=== PATIENT | female | born 1990 | race African-American/Black ===

== ENCOUNTER 2017-07-29 20:29 | Emergency (ER) | payer SELFPAY ==
[~2017-07-29] VITALS: Ht 162.6 cm; Wt 132.2 kg
[~2017-07-29 20:29] MED LIST: IBUP-232 PO; PENI500T PO; Z.0.NO CURRENT MEDS; ZINCLOZ2 PO; ZOFR4TAB3 SL
[2017-07-29 20:36] VITALS: BP 146/95; PULSE 105; RESP 22; TEMP 98.4; O2SAT 96
[2017-07-29] MEDS ORDERED: methylPREDNISolone SOD SUCC 125 MG/2 ML VIAL IM ONE (21:00)
--- NOTE | 2017-07-29 21:15 | PD ---
HPI Chief Complaint: Respiratory Symptoms Time Seen by Provider: 20:55 Travel History International Travel<30 days: No Contact w/Intl Traveler<30days: No Traveled to known affect area: No History of Present Illness HPI 26-year-old female that presents to the ED for evaluation of shortness of breath. Per patient she has no history of asthma but has a history of smoking. Per patient she feels tightness in her chest and cough. Shortness of breath with exertion. She has not taken anything for this. Denies any abdominal pain. No nausea or vomiting. No bowel movement or urinary issues. No allergies to medication. Denies any sick contacts. PFSH Past Medical History Medical History: Denies Significant Hx ?: Not LMP: 07/15/17 Past Surgical History Surgical History: No Previous Surgery Social History Alcohol Use: No Tobacco Use: Yes (1 ppd) Substance Use: No Allergies-Medications (Allergen,Severity, Reaction): Coded Allergies: No Known Allergies (Verified , 08/20/15) Reported Meds & Prescriptions Reported Meds & Active Scripts Active Proair Hfa 8.5 GM Inh (Albuterol Sulfate) 90 Mcg/Act Aer 2 Puff INH Q4-6H PRN 108 mcg/actuation Azithromycin 250 Mg Tab 250 Mg PO DIRECTED Take 2 tabs (500 mg) on day 1 then 1 tab daily x 4 days. Prednisone 20 Mg Tab 20 Mg PO BID 5 Days Motrin (Ibuprofen) 600 Mg Tab 600 Mg PO Q 8 HR PRN PAIN Zofran ODT (Ondansetron HCl) 4 Mg Tab 4 Mg SL Q6HPRN FOR NAUSEA/VOMITING Cepacol Maximum Strength (Cetylpyridinium Chloride/Benzocaine) 1 Lozg Cori 1 Lozg PO Q4HPRN Pen Vk (Penicillin V Potassium) 500 Mg Tab 500 Mg PO QID Reported No Current Meds (Miscellaneous Medication) Misc Review of Systems Except as stated in HPI: all other systems reviewed are Neg Physical Exam Narrative GENERAL: Well-nourished, well-developed patient in no apparent distress. SKIN: Warm and dry. HEAD: Atraumatic. Normocephalic. EYES: Pupils equal and round reactive to light and accommodation. No scleral icterus. No injection or drainage. ENT: No nasal bleeding or discharge. Mucous membranes pink and moist. TMs are clear with no sign of infection or perforation. No mastoid tenderness. Ear canals are intact bilaterally. No lymphadenopathy. Nostril mucosa is red and moist with clear mucus noted. No sinus tenderness to palpation noted. Tonsils are not enlarged or swollen. No ulvua Deviation. Tongue is midline. NECK: Trachea midline. No JVD. No meningeal signs noted CARDIOVASCULAR: Regular rate and rhythm. RESPIRATORY: No accessory muscle use. Wheezings heard in all lung ding. Breath sounds equal bilaterally. GASTROINTESTINAL: Abdomen soft, non-tender, nondistended. Hepatic and splenic margins not palpable. MUSCULOSKELETAL: Extremities without clubbing, cyanosis, or edema. No obvious deformities. NEUROLOGICAL: Awake and alert. No obvious cranial nerve deficits. Motor grossly within normal limits. Five out of 5 muscle strength in the arms and legs. Normal speech. PSYCHIATRIC: Appropriate mood and affect; insight and judgment normal. Data Data Last Documented VS Vital Signs Date Time Temp Pulse Resp B/P (MAP) Pulse Ox O2 Delivery O2 Flow Rate FiO2 07/29/17 20:36 98.4 105 22 146/95 (112) 96 Room Air Orders Orders Chest, Single Ap (07/29/17 20:59) Methylprednisolone So Succ Inj (Solumedr (07/29/17 21:00) Albuterol-Ipratropium Neb (Duoneb Neb) (07/29/17 21:00) Albuterol-Ipratropium Neb (Duoneb Neb) (07/29/17 22:45) MDM Medical Decision Making Medical Screen Exam Complete: Yes Emergency Medical Condition: Yes Medical Record Reviewed: Yes Interpretation(s) Last Impressions Chest X-Ray 07/29/172058 Signed Impressions: Service Date/Time: Saturday, July 29, 2017 21:04 - CONCLUSION: Normal examination. Jefry Salmon MD Differential Diagnosis Asthma exacerbation versus pneumonia versus bronchitis versus reactive airway disease Narrative Course 26-year-old female that presents to the ED for evaluation of shortness of breath. Patient was properly examined and was found to have signs and symptoms consistent with appears to be possible reactive airway disease. Chest x-ray and duonebs were given. Patient was given Solu-Medrol as well. Chest x-ray showed no sign of acute disease. Patient was reassessed and feels improved. Still some wheezing noted. Patient was given 2 more treatments with improvement. Patient had this time will be given prescriptions for Provera, azithromycin and prednisone. She was given note for work. I strongly recommended that she quit smoking. Patient agrees with this plan. Follow with PCP. See ED worsening symptoms. Diagnosis Primary Impression: Bronchitis Additional Impression: Reactive airway disease Qualified Codes: J45.909 - Unspecified asthma, uncomplicated Patient Instructions: General Instructions Departure Forms: Tests/Procedures, Work Release Enter return to work date: Aug 01, 2017 Additional Instructions: Motrin and Tylenol for pain and fever. You can use [id number] antihistamine as well as well as Mucinex as needed for runny nose and congestion. Cough drops for cough as needed. Drink plenty of fluids. Follow-up with PCP. See ED for worsening symptoms. Med/Other Pt SpecificInfo: Prescription(s) given Scripts Albuterol 8.5 GM Inh (Proair Hfa 8.5 GM Inh) 90 Mcg/Act Aer 2 PUFF INH Q4-6H Y for SHORTNESS OF BREATH, #1 INHALER 0 Refills 108 mcg/actuation Prov: Matt Ruiz MD 07/29/17 Azithromycin (Azithromycin) 250 Mg Tab 250 MG PO DIRECTED for Infection, #6 TAB 0 Refills Take 2 tabs (500 mg) on day 1 then 1 tab daily x 4 days. Prov: Matt Ruiz MD 07/29/17 Prednisone (Prednisone) 20 Mg Tab 20 MG PO BID for 5 Days, #10 TAB 0 Refills Prov: Matt Ruiz MD 07/29/17 Disposition: 01 DISCHARGE HOME Condition: Stable Josh May Jul 29, 2017 21:15
[2017-07-29] MEDS: RESP: ALBUTEROL 2.5 MG/IPRATROPIUM 0.5 MG NEB (SCH) INH ×3 (21:23→22:53)
--- NOTE | 2017-07-29 21:40 | RADRPT ---
EXAM DATE/TIME: 07/29/2017 21:04 [facility] COMPARISON: No previous studies available for comparison. INDICATIONS : Short of breath. MEDICAL HISTORY : None. SURGICAL HISTORY : None. ENCOUNTER: Initial ACUITY: 1 day PAIN SCORE: 0/10 LOCATION: Bilateral chest FINDINGS: A single view of the chest demonstrates the lungs to be symmetrically aerated without evidence of mas s, infiltrate or effusion. The cardiomediastinal contours are unremarkable. Osseous structures are intact. CONCLUSION: Normal examination. Jefry Salmon MD on July 29, 2017 at 21:38 Board Certified Radiologist. This report was verified electronically.
[2017-07-29] MEDS ORDERED: AZIT250T3 PO (22:39)
[2017-07-29] MEDS ORDERED: ALBUAER3 INH (22:39)
[2017-07-29] MEDS ORDERED: PRED20 PO (22:39)
== END 2017-07-29 23:21 | disposition home or self-care (01) ==
LOC: NEPD 20:29
DX: J45.909 Unspecified asthma, uncomplicated (principal); R05 Cough; F17.200 Nicotine dependence, unspecified, uncomplicated; Z79.899 Other long term (current) drug therapy
CPT/HCPCS: 71010; 94640; 94664; 96372; 99285; J2930